=== PATIENT | female | born 1950 | race Caucasian/White ===

== ENCOUNTER → 2016-06-13 | Outpatient (CLI) | payer MEDICARE, OTHER ==
--- NOTE | 2016-06-13 19:53 | MRI ---
EXAM DESCRIPTION: MR LUMBAR SPINE WITHOUT IV CONTRAST CLINICAL HISTORY: SPINAL STENOSIS COMPARISON: None Available. TECHNIQUE: Standard sagittal and axial MR images of the lumbar spine. No contrast administered. FINDINGS: Conus medullaris terminates atlower L1 level. Cauda equina separate appropriately. There are no acute fractures or compression deformities. Prevertebral and paravertebral soft tissues are within normal limits. Status post right nephrectomy. The superior pole left renal cyst noted. T12-L1: Unremarkable. L1-2: Unremarkable. L2-3: Unremarkable. L3-4: Unremarkable. L4-5: Unremarkable. L5-S1: Mild circumferential disk bulge with mild facet arthrosis. No focal disk herniation. No spinal canal or foraminal stenosis. No concerning marrow space lesion. IMPRESSION: Mild lumbar spondylosis, predominately at L5-S1 as outlined above. Status post right nephrectomy. Electronically signed by: Osmel Cano 06/13/2016 19:50
== END | disposition home or self-care (01) ==
LOC: MRI 13:49
PROVIDERS: ATTEND Neurological Surgery
DX: M48.06 Spinal stenosis, lumbar region (principal)

== ENCOUNTER → 2016-08-03 | Outpatient (CLI) | payer MEDICARE, OTHER ==
--- NOTE | 2016-08-09 08:27 | MAM ---
EXAM DESCRIPTION: Screening Mammogram,Bilateral CLINICAL HISTORY: 66 years, Female, Screening mammogram COMPARISON: October 08, 2013 TECHNIQUE: CC and MLO digital mammograms with computer aided detection. FINDINGS: There are scattered fibroglandular densities. There is no dominant mass nor any suspicious microcalcifications. Benign microcalcifications are present. IMPRESSION: BI-RADS 2: BENIGN FOLLOW-UP: Routine mammography screening. Electronically signed by: Tr Vargas MD 08/09/2016 8:26 AM CDT
== END ==
LOC: MAMMO 08:58
PROVIDERS: ATTEND Family Medicine
DX: Z12.31 Encounter for screening mammogram for malignant neoplasm of breast (principal)

== ENCOUNTER → 2017-08-30 | Outpatient (CLI) | payer MEDICARE, OTHER ==
--- NOTE | 2017-09-01 15:42 | MAM ---
EXAM DESCRIPTION: 3D Screening BILATERAL : Digital Mammography. CLINICAL HISTORY: 67 years Female screening . Pain in the left breast at site of prior tumor removal. No ascites tumors removed in the upper outer quadrant of the left breast. Remote family history of breast cancer. Hysterectomy. No HRT.. COMPARISON: 2-D digital screening bilateral study 08/03/2016. Report from prior examination also reviewed. TECHNIQUE: Bilateral CC and MLO projection full-field images, 3-D tomosynthesis digital mammographic technique. Also bilateral synthesized CC/ MLO full-field images. CAD not utilized. FINDINGS: The breast parenchymal density pattern is: Scattered areas of fibroglandular density. No skin thickening or nipple retraction bilateral axillary lymph nodes. Bilateral solitary microcalcifications. Focal asymmetry in the upper outer quadrant of the middle third of the left breast approximately 5 cm from the nipple. 300 clock position. Minimal microcalcifications. Not well seen on the prior study. No focal, stellate mass or density, focal asymmetry , and no suspicious microcalcifications right breast. Stable mammograms compared to prior study, taking into account differences in mammographic technique IMPRESSION: BI-RADS CATEGORY: 0 - INCOMPLETE- Need additional imaging evaluation. FOLLOW-UP: Recall for additional imaging: Bilateral 3-D tomosynthesis full field LM images of the breasts with magnification CC 2-D images of the region of interest lateral left breast. Targeted left breast ultrasound if indicated by diagnostic images. Written communication concerning the IMPRESSION and Follow-up, will be mailed to the patient and referring health care provider. Electronically signed by: Hamilton Grace MD 09/01/2017 3:40 PM CDT
== END ==
LOC: MAMMO 13:00
PROVIDERS: ATTEND Family Medicine
DX: Z12.31 Encounter for screening mammogram for malignant neoplasm of breast (principal)

== ENCOUNTER → 2017-09-19 | Outpatient (CLI) | payer MEDICARE, OTHER ==
--- NOTE | 2017-09-20 10:03 | US ---
EXAM DESCRIPTION: Breast,Left: Ultrasound CLINICAL HISTORY: 67 yearsFemaleABNORMAL MAMMO. 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 COMPARISON: Digital 3-D tomosynthesis diagnostic and 2-D diagnostic images left breast on this visit. TECHNIQUE: Transcutaneous scanning of the left breast utilizing two-dimensional and Doppler modes. Scanning performed by the ostrich farm worker and Dr. Grace. FINDINGS: Scanning in the region of the 300 clock position of the left breast 5 cm from the nipple to the nipple. Nonspecific heterogeneous fibroglandular and fatty tissues. Edge shadowing from some of the fibroglandular elements. One hypoechoic nodule with well-defined margins measuring 7.6 x 4 mm with parallel orientation and posterior acoustic enhancement. Nonvascular. This could represent a fibroadenoma, complicated cyst, or lymph node. No distinct cyst or abnormal calcifications. No parenchymal edema or overlying skin changes. IMPRESSION: 1. Bi-Rads Category 2: Benign. 2. Please refer to left breast diagnostic 3-D/2-D mammography examination and report on this visit. The FINDINGS and the FOLLOW-UP plan were reviewed in person with the patient after the examination. Written communication explaining the IMPRESSION and FOLLOW-UP will be mailed to the patient and referring care provider. Electronically signed by: Hamilton Grace MD 09/20/2017 10:02 AM CDT
--- NOTE | 2017-09-20 13:40 | MAM ---
EXAM DESCRIPTION: 3D Diagnostic, Left: Digital Mammography CLINICAL HISTORY: 67 yearsFemaleABNORMAL MAMMO . No complaints. 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 COMPARISON: 3-D Stacey synthesis screening bilateral mammography 08/30/2017.. Targeted left breast ultrasound following this examination. Reports from prior examinations also reviewed. TECHNIQUE: Left breast LM projection full-field images, 3-D tomosynthesis digital mammographic technique. Left breast CC 2-D and 3-D magnification images of the region of interest. CAD for 2-D imaging only. FINDINGS: The breast parenchymal density pattern is: Scattered areas of fibroglandular density. No skin thickening or nipple retraction left axillary lymph nodes. Scattered microcalcifications. No mass or focal asymmetry in the region of interest. Ultrasound: Scanning in the region of the 300 clock position of the left breast 5 cm from the nipple to the nipple. Nonspecific heterogeneous fibroglandular and fatty tissues. Edge shadowing from some of the fibroglandular elements. One hypoechoic nodule with well-defined margins measuring 7.6 x 4 mm with parallel orientation and posterior acoustic enhancement. Nonvascular. This could represent a fibroadenoma, complicated cyst, or lymph node. No distinct cyst or abnormal calcifications. No parenchymal edema or overlying skin changes. IMPRESSION: BI-RADS CATEGORY: 2 - BENIGN FINDINGS. FOLLOW UP: Return to routine digital bilateral screening, one year interval from August 2017. Written communication explaining the IMPRESSION and follow-up, will be mailed to the patient and referring health care provider. According to the [employer], yearly mammograms are recommended starting at age 40 and continuing as long as a woman is in good health. Any breast change noted on a breast self-exam should be reported promptly to the patient's healthcare provider. Breast MRI is recommended for women with an approximately 20-25% or greater lifetime risk of breast cancer, including women with a strong family history of breast or ovarian cancer and women who have been treated for Hodgkin's disease. A negative mammographic report should not delay tissue diagnosis in patients with significant clinical history or physical findings. Extremely dense breast tissue limits the sensitivity of digital mammography. Electronically signed by: Hmailton Grace MD 09/20/2017 1:39 PM CDT
== END ==
LOC: MAMMO 11:00
PROVIDERS: ATTEND Family Medicine
DX: R92.8 Other abnormal and inconclusive findings on diagnostic imaging of breast (principal)
CPT/HCPCS: 76641; 77065; G0279

== ENCOUNTER → 2017-11-14 | Outpatient (CLI) | payer MEDICARE, OTHER | LOC: RESP 11-13 13:44 | PROVIDERS: ATTEND Orthopaedic Surgery | DX: Z01.818 Encounter for other preprocedural examination (principal) ==

== ENCOUNTER → 2018-08-31 | Outpatient (CLI) | payer MEDICARE, OTHER ==
--- NOTE | 2018-09-05 17:17 | MAM ---
EXAM DESCRIPTION: 3D Screening BILATERAL : Digital Mammography. CLINICAL HISTORY: 68 years Female SCREEN . No complaints or personal history of breast cancer. Remote family history of breast cancer. Childbirth. Postmenopausal. HRT 5 or more years ago.. Benign left breast biopsy. Lifetime risk of developing breast cancer (Tyrer-Cuzick model)(%): 8.5. COMPARISON: screening bilateral digital breast tomosynthesis 08/30/2017. Diagnostic left breast tomosynthesis 09/19/2017. Accompanying with left breast targeted ultrasound. TECHNIQUE: Bilateral CC and MLO projection full-field images, digital tomosynthesis mammographic technique. Bilateral digital 2-D full-field MLO images. CAD not available for tomosynthesis or 2-D images. FINDINGS: The breast parenchymal density pattern is: Scattered areas of fibroglandular density. No skin thickening or nipple retraction. Bilateral axillary lymph nodes. Numerous bilateral parenchymal calcifications. Stable focal asymmetry in the upper outer quadrant of the middle third of the left breast. No new focal, stellate mass or density, focal asymmetry , and no suspicious microcalcifications bilaterally. Stable mammograms compared to prior study. IMPRESSION: Benign exam. BIRAD CATEGORY: 2 BENIGN FINDINGS. RECOMMENDATIONS: FOLLOW UP: Routine digital bilateral mammographic screening, one year interval from August 2018. Written communication explaining the IMPRESSION and follow-up, will be mailed to the patient and referring health care provider. The FINDINGS and the FOLLOW-UP plan were reviewed in person with the patient after the examination. According to the [employer], yearly mammograms are recommended starting at age 40 and continuing as long as a woman is in good health. Any breast change noted on a breast self-exam should be reported promptly to the patient's healthcare provider. Breast MRI is recommended for women with an approximately 20-25% or greater lifetime risk of breast cancer, including women with a strong family history of breast or ovarian cancer and women who have been treated for Hodgkin's disease. A negative mammographic report should not delay tissue diagnosis in patients with significant clinical history or physical findings. Extremely dense breast tissue limits the sensitivity of digital mammography. Electronically signed by: Hamilton Grace MD 09/05/2018 5:15 PM CDT
== END ==
LOC: MAMMO 13:00
PROVIDERS: ATTEND Family Medicine
DX: Z12.31 Encounter for screening mammogram for malignant neoplasm of breast (principal)

== ENCOUNTER → 2018-11-01 | Outpatient (CLI) | payer MEDICARE, OTHER ==
--- NOTE | 2018-11-01 09:12 | RAD ---
EXAM DESCRIPTION: Shoulder,Left 2 or More Views CLINICAL HISTORY: 68 years Female, M25.512 COMPARISON: None. FINDINGS: Four views of the left shoulder show no acute fracture or malalignment. Mild degenerative changes in the left AC joint without undersurface spurring. The left glenohumeral joint space is well maintained. No soft tissue abnormality. IMPRESSION: Mild degenerative changes in the left AC joint, otherwise unremarkable exam. Electronically signed by: Vicente Walsh MD 11/01/2018 9:10 AM CDT
--- NOTE | 2018-11-01 16:46 | MRI ---
MRI left shoulder without contrast INDICATION: Shoulder pain rotator cuff syndrome TECHNIQUE: Noncontrast MR imaging left shoulder standard protocol FINDINGS: There is medial subluxation long head bicep indicating instability with interstitial tendinosis and chronic partial tear. No complete rupture or dislocation. There is tendinopathy of the subscapularis. Prominent cystic changes are noted in the inferior glenoid suggesting overlying chondrosis and osteoarthrosis. Severe subacromial and subdeltoid bursitis. Moderate AC joint osteoarthrosis. Tendinopathy supraspinatus and infraspinatus with thinning indicating mild chronic partial tears. Grade 1-2 fatty marbling of the rotator cuff muscle bellies. There is a faint interstitial partial tear approaches 50% partial-thickness distal supraspinatus to the rotator interval. Mild cystic change/edema in the greater tuberosity. Diffuse mild labral degeneration. IMPRESSION: Developing glenohumeral osteoarthrosis with cystic changes in the inferior glenoid Medial long head bicep subluxation with interstitial tendinosis and partial tear Severe subacromial and subdeltoid bursitis Vague partial tears of the supraspinatus and infraspinatus with most pronounced in the anterior supraspinatus near the rotator interval without retraction Moderate AC joint osteoarthrosis Electronically signed by: Andrez Albarado MD 11/01/2018 4:43 PM CDT
== END ==
LOC: MRI 12:55
PROVIDERS: ATTEND Orthopaedic Surgery
DX: M75.102 Unspecified rotator cuff tear or rupture of left shoulder, not specified as traumatic (principal); S46.119A Strain of muscle, fascia and tendon of long head of biceps, unspecified arm, initial encounter; M19.012 Primary osteoarthritis, left shoulder; M75.52 Bursitis of left shoulder

== ENCOUNTER → 2018-11-01 | Outpatient (CLI) | payer MEDICARE, OTHER ==
--- NOTE | 2018-11-01 09:12 | RAD ---
EXAM DESCRIPTION: Shoulder,Left 2 or More Views CLINICAL HISTORY: 68 years Female, M25.512 COMPARISON: None. FINDINGS: Four views of the left shoulder show no acute fracture or malalignment. Mild degenerative changes in the left AC joint without undersurface spurring. The left glenohumeral joint space is well maintained. No soft tissue abnormality. IMPRESSION: Mild degenerative changes in the left AC joint, otherwise unremarkable exam. Electronically signed by: Vicente Walsh MD 11/01/2018 9:10 AM CDT
== END ==
LOC: RAD 07:46
PROVIDERS: ATTEND Orthopaedic Surgery
DX: M19.012 Primary osteoarthritis, left shoulder (principal); S46.112A Strain of muscle, fascia and tendon of long head of biceps, left arm, initial encounter; S46.812A Strain of other muscles, fascia and tendons at shoulder and upper arm level, left arm, initial encounter; S43.082A Other subluxation of left shoulder joint, initial encounter; M75.52 Bursitis of left shoulder

== ENCOUNTER → 2018-12-26 | Outpatient (CLI) | payer MEDICARE, OTHER | LOC: LAB.O 09:42 | PROVIDERS: ATTEND Orthopaedic Surgery | DX: Z01.818 Encounter for other preprocedural examination (principal) ==

== ENCOUNTER 2019-01-09 05:48 | Day surgery (SDC) | payer MEDICARE, OTHER ==
--- NOTE | 2019-01-04 08:14 | HP ---
CHIEF COMPLAINT: Left shoulder pain. HISTORY OF PRESENT ILLNESS: Ms. Andrwes is a 68-year-old female with a history of pain in the shoulder. She localizes pain predominantly to the area of the acromioclavicular joint. She has pain that she says is generally in the vicinity of about a 5 or 6. She has tried anti-inflammatories as well as injections and activity modification. Unfortunately, she has failed to gain relief. This has been nontraumatic in nature. It is sharp. Aggravating factors include movement and direct pressure. Alleviating factors are rest. Because of her ongoing symptoms, she has requested operative intervention. After discussing the risks, benefits and alternatives to that, she has given informed consent for subacromial decompression and distal clavicle resection and possible rotator cuff repair. PAST SURGICAL HISTORY: 1. Carpal tunnel release. MEDICATIONS: 1. Cartia XT. 2. Diazepam. 3. Metformin. 4. Metoprolol. 5. Pramipexole. 6. Prilosec. 7. Vitamin. PAIN CONTRACT: None. ALLERGIES: LATEX, BAND-AIDS, CONTRAST DYE. CODE STATUS: Full code. IMMUNIZATIONS: Up to date. SOCIAL HISTORY: The patient does not drink, smoke or use any illicit drugs. FAMILY HISTORY: None pertinent to today's complaint. REVIEW OF SYSTEMS: Negative except as indicated in the History of Present Illness. HEENT: The patient reports no symptoms. RESPIRATORY: The patient reports no symptoms. CARDIOVASCULAR: The patient reports no symptoms. GASTROINTESTINAL: The patient reports no symptoms GENITOURINARY: The patient reports no symptoms. MUSCULOSKELETAL: Negative except as noted in History of Present Illness. SKIN: The patient reports no symptoms. NEUROLOGIC: The patient reports no symptoms. PHYSICAL EXAMINATION: VITAL SIGNS: Blood pressure 157/99. Pulse 85. Height 5'3". Weight 215 pounds. MENTAL STATUS: The patient is awake, alert, and is able to give a good history and participate in the physical. The patient is oriented to person, place and time. SKIN: Normal tone and turgor. MUSCULOSKELETAL: The bilateral lower extremities show full active range of motion without pain. She has intact sensation in the extremities. They are warm and well perfused. There is no deformity. Strength is 5/5. There is no laxity in anterior and posterior stress testing of the lower extremities. She has a normal gait. The right upper extremity shows no significant pain over the acromioclavicular joint. She has intact sensation. It is warm and well perfused. She has no malalignment. There is no deformity. The left upper extremity shows full active range of motion of the elbow, wrist and digits. She has difficulty with abduction. She has severe pain with cross- chest adduction. The entire extremity is warm and well perfused. She has severe pain over the acromioclavicular joint and crepitus over the acromioclavicular joint with range of motion. She has pain with internal and external rotation during forward flexion. RADIOLOGY: My read of the x-rays show severe arthritis at the acromioclavicular joint. My read of the MRI shows severe arthritis at the acromioclavicular joint, tendinosis and subacromial bursitis. ASSESSMENT: 1. Impingement. 2. Shoulder pain. PLAN: The plan at this point is for subacromial decompression and distal clavicle resection. We have discussed the risks, benefits, and alternatives to that and the patient has given informed consent. [facility][id number] [facility]
[2019-01-09] MEDS ORDERED: LACTATED RINGERS 1,000 ML ONE (08:56)
[2019-01-09] MEDS ORDERED: ceFAZolin SODIUM 1 GM VIAL ONE ×3 (08:56→09:19)
[2019-01-09] MEDS ORDERED: SODIUM CHL 0.9% 100ML MINI-BAG 100 ML IVPB ONE (08:56)
[2019-01-09] MEDS ORDERED: LACTATED RINGERS 1,000 ML IVS ONE (09:15)
[2019-01-09] MEDS ORDERED: VANCOMYCIN HCL INJ 1,000 MG VIAL IVPB ONE ×2 (09:17→09:19)
[2019-01-09] MEDS ORDERED: BUPIVACAINE LIPOSOME 13.3 MG/ML VIAL INJ ONE ×2 (09:18→09:58)
[2019-01-09] MEDS ORDERED: BUPIVACAINE 0.5% 30 ML VIAL INJ ONE ×2 (09:18→09:58)
[2019-01-09] MEDS ORDERED: fentaNYL CITRATE INJ 50 MCG/ML AMP ONE (09:58)
[2019-01-09] MEDS ORDERED: MIDAZOLAM INJ 5 MG/5 ML VIAL ONE (09:59)
[2019-01-09] MEDS ORDERED: KETAMINE HCL 50 MG/ML SYG IV ONE (10:03)
[2019-01-09] MEDS ORDERED: ROCURONIUM BROMIDE 10 MG/ML VIAL ONE (10:04)
[2019-01-09] MEDS ORDERED: ELECTROLYTE-A 1,000 ML IVS ONE (11:46)
[2019-01-09] MEDS ORDERED: PHENYLEPHRINE INJ 1ML 10 MG/ML VIAL IV ONE (12:00)
[2019-01-09] MEDS ORDERED: ONDANSETRON INJ 4 MG/2 ML VIAL IV ONE (12:00)
[2019-01-09] MEDS ORDERED: ePHEDrine SULF 50 MG/ML IV ONE (12:00)
[2019-01-09] MEDS ORDERED: raNITIdine HCL INJ 25 MG/ML VIAL IV ONE (12:00)
[2019-01-09] MEDS ORDERED: PROPOFOL 200 MG/20 ML VIAL IV ONE (12:00)
[2019-01-09] MEDS ORDERED: DEXAMETHASONE INJ 10 MG/ML VIAL IV ONE (12:00)
[2019-01-09] MEDS ORDERED: SODIUM CHLORIDE 0.9% 50 ML VIAL INJ ONE (12:00)
[2019-01-09] MEDS ORDERED: LIDOCAINE 1% 10 ML VIAL INJ ONE (12:00)
[2019-01-09] MEDS ORDERED: SUGAMMADEX SODIUM 200 MG/2 ML VIAL IV ONE (12:29)
[2019-01-09] MEDS ORDERED: LEVALBUTEROL NEBS 1.25 MG/3 ML VIAL NEB ONE (12:49)
[2019-01-09 14:26] VITALS: BP 121/48; TEMP 96.7; O2SAT 93
--- NOTE | 2019-01-10 10:14 | OP ---
DATE OF PROCEDURE: 01/09/19 PREOPERATIVE DIAGNOSIS: 1. Impingement. 2. Rotator cuff tear. POSTOPERATIVE DIAGNOSIS: 1. Impingement. 2. Rotator cuff tear. PROCEDURE: 1. Subacromial decompression. 2. Acromioplasty. 3. Rotator cuff repair. SURGEON: Jorge Toledo MD. INSIDE POLISHER: Hamilton Lund CST, SA-C. ANESTHESIA: General anesthesia. COMPLICATIONS: None. FINDINGS: 1. Overhanging acromion. 2. Hypertrophic bursitis. 3. Tear in the rotator interval. INDICATION: Ms. Andrews has a history of shoulder pain for which she has undergone conservative measures. Unfortunately, she has failed to gain relief. Because of failure of relief from conservative measures and ongoing dysfunction, she has requested operative intervention. After discussing the risks, benefits and alternatives to of the right hand, the patient has given informed consent for that. PROCEDURE: The patient was brought to the Operating Room and placed in the supine position. General anesthesia was induced and the patient was transitioned into the beach chair position. Following transitioning into the beach chair position, the arm and shoulder were sterilely prepped and draped. Following prepping and draping, an incision was made at the lateral border of the acromion. There was a split made between the anterior and middle heads of the deltoid. That was taken down to the subacromial space and a complete bursectomy was performed. An acromioplasty was performed. The rotator cuff was identified. The arm was taken through a full range of motion to identify all the tendons of the rotator cuff with the above findings noted. The tendon ends were debrided and a [id number] repair was performed using Ethibond suture. The arm was taken through a range of motion and the repair was stable. There was no significant impingement. There was no undue tension on the repair. The wound was very thoroughly irrigated and the deltoid was reapproximated. Following reapproximation, the skin was closed with a combination of running and interrupted subcuticular stitches. Sterile dressings were placed. The patient was placed in a sling, awoken from anesthesia and taken to Recovery. POSTOPERATIVE PLAN: She will followup with us in two days. She has been encouraged to do range of motion of the digits and we will start her on early physical therapy in the next one to two weeks. [facility][id number] [facility]
== END 2019-01-09 14:15 | disposition home or self-care (01) ==
LOC: AMB 05:48
PROVIDERS: ATTEND Orthopaedic Surgery
DX: M75.42 Impingement syndrome of left shoulder (principal); M75.102 Unspecified rotator cuff tear or rupture of left shoulder, not specified as traumatic; I10 Essential (primary) hypertension; E11.9 Type 2 diabetes mellitus without complications; E78.00 Pure hypercholesterolemia, unspecified; K76.0 Fatty (change of) liver, not elsewhere classified; D69.6 Thrombocytopenia, unspecified; G47.33 Obstructive sleep apnea (adult) (pediatric); K21.9 Gastro-esophageal reflux disease without esophagitis; Z85.51 Personal history of malignant neoplasm of bladder; Z90.49 Acquired absence of other specified parts of digestive tract; Z90.710 Acquired absence of both cervix and uterus; Z91.041 Radiographic dye allergy status; Z91.040 Latex allergy status; Z79.84 Long term (current) use of oral hypoglycemic drugs; Z79.899 Other long term (current) drug therapy
CPT/HCPCS: 01630; 23420; 36416; 80307; 82948; A4216; J0690; J1100; J2250; J2405; J2780; J3010; J3370; J3490; J7050; J7120; J7614

== ENCOUNTER → 2019-10-15 | Outpatient (CLI) | payer MEDICARE, OTHER ==
--- NOTE | 2019-10-23 10:39 | MAM ---
EXAM DESCRIPTION: 3D Screening BILATERAL : Digital Mammography. CLINICAL HISTORY: 69 years Female SCREENING . No complaints. No personal history of breast cancer. Remote family history of breast cancer. Menarche age 12. No childbirth. Premenopausal. No HRT. Prior left breast biopsy benign. Lifetime risk of developing breast cancer (Tyrer-Cuzick model)(%): 7.1. COMPARISON: Bilateral screening digital breast tomosynthesis August 2018 and August 2017. TECHNIQUE: Bilateral CC and MLO projection full-field images, digital tomosynthesis mammographic technique. Bilateral digital 2-D full-field MLO images. CAD available for 2-D images. FINDINGS: The breast parenchymal density pattern is: Scattered areas of fibroglandular density. No skin thickening or nipple retraction. Bilateral solitary microcalcifications and coarse calcifications. Vascular calcifications. No new focal, stellate mass or density, focal asymmetry , and no suspicious microcalcifications . Stable mammograms compared to prior study. IMPRESSION: Benign exam. BIRAD CATEGORY: 2 BENIGN FINDINGS. RECOMMENDATIONS: FOLLOW UP: Routine digital bilateral mammographic screening, one year interval from September 2019. Written communication explaining the IMPRESSION and follow-up, will be mailed to the patient and referring health care provider. According to the [employer], yearly mammograms are recommended starting at age 40 and continuing as long as a woman is in good health. Any breast change noted on a breast self-exam should be reported promptly to the patient's healthcare provider. Breast MRI is recommended for women with an approximately 20-25% or greater lifetime risk of breast cancer, including women with a strong family history of breast or ovarian cancer and women who have been treated for Hodgkin's disease. A negative mammographic report should not delay tissue diagnosis in patients with significant clinical history or physical findings. Extremely dense breast tissue limits the sensitivity of digital mammography. Electronically signed by: Hamilton Grace MD 10/23/2019 10:38 AM CDT
== END ==
LOC: MAMMO 15:59
PROVIDERS: ATTEND Family Medicine
DX: Z12.31 Encounter for screening mammogram for malignant neoplasm of breast (principal)

== ENCOUNTER → 2020-03-26 | Outpatient (CLI) | payer MEDICARE, OTHER ==
--- NOTE | 2020-03-26 12:25 | RAD ---
EXAM DESCRIPTION: Wrist,Left 3 Views CLINICAL HISTORY: 69 years Female, PAIN COMPARISON: None. TECHNIQUE: 3 view radiograph of the left wrist. IMPRESSION: No acute displaced fracture. No dislocation. The carpal and metacarpal bones maintain normal anatomic alignment. Neutral ulnar variance. No soft tissue defect or radiopaque foreign body. Moderate arthrosis about the carpal bones. Electronically signed by: Maximo Lozada MD 03/26/2020 12:23 PM [facility]
== END ==
LOC: RAD 08:11
PROVIDERS: ATTEND Orthopaedic Surgery
DX: M19.032 Primary osteoarthritis, left wrist (principal)

== ENCOUNTER → 2020-04-06 | Outpatient (CLI) | payer MEDICARE, OTHER | LOC: LAB.O 12:34 | PROVIDERS: ATTEND Orthopaedic Surgery | DX: Z01.818 Encounter for other preprocedural examination (principal) ==